=== PATIENT | male | born 1965 | race Caucasian/White ===

== ENCOUNTER → 2018-09-19 | Outpatient (CLI) | payer BC ==
--- NOTE | 2018-09-19 08:34 | MR ---
EXAMINATION TYPE: MR knee RT wo con DATE OF EXAM: 09/19/2018 COMPARISON: NONE HISTORY: R knee pain per order. Outer pain and swelling for 6 weeks per patient. TECHNIQUE: Multiplanar, multisequence images of the knee is performed without IV contrast. FINDINGS: MEDIAL MENISCUS: There is oblique signal with truncation of the posterior horn extending to superior surface with inferior extension near central body and more horizontal component extending into the an terior horn. LATERAL MENISCUS: Anterior and posterior horns are intact without tear. CRUCIATE LIGAMENTS: The anterior and posterior cruciate ligaments are intact and unremarkable. COLLATERAL LIGAMENTS: The medial collateral ligament and lateral collateral ligament complex are inta ct. Mild fluid signal surrounds the medial collateral ligament EXTENSOR MECHANISM: Visualized quadriceps and patellar tendons are intact. EFFUSION: No significant suprapatellar joint effusion. POPLITEAL CYST: No popliteal/banks cyst. TRICOMPARTMENT SPACES: Tricompartment joint spaces show mild narrowing. No significant spurring is se en. CARTILAGE: No significant chondromalacia patella. Articular cartilage is maintained. BONE MARROW SIGNAL: No focal abnormal marrow signal is appreciated. OTHER: No additional significant abnormality is appreciated. IMPRESSION: 1. Complex full-thickness tear posterior horn of medial meniscus extending into central body. 2. Mild MCL sprain injury.
== END | disposition home or self-care (01) ==
LOC: RADMRIMAIN 07:42
PROVIDERS: ATTEND Family Medicine
DX: S83.231A Complex tear of medial meniscus, current injury, right knee, initial encounter (principal); S83.411A Sprain of medial collateral ligament of right knee, initial encounter

== ENCOUNTER 2020-05-28 08:21 | Day surgery (SDC) | payer OTHER ==
[2020-05-25 13:01] VITALS: BMI 29.1
[~2020-05-28 08:21] MED LIST: LACTATED RINGERS 1,000 ML IV SCH; LIDOCAINE 1% (10MG/ML) FOR IV START INTRADERMA PRN
[2020-05-28 08:57] VITALS: TEMP 97.7
--- NOTE | 2020-05-28 09:28 | P.GSHP ---
History of Present Illness H&P Date: 05/28/20 Chief Complaint: Screening colonoscopy This a 55-year-old male today for screening colonoscopy. Patient denies any significant GI complaints. Past Medical History Past Medical History: Cancer Additional Past Medical History / Comment(s): HX SKIN CANCER ON LT NECK AREA History of Any Multi-Drug Resistant Organisms: None Reported Past Surgical History: Appendectomy, Hernia Repair, Tonsillectomy Additional Past Surgical History / Comment(s): COLONOSCOPY. SKIN CANCER REMOVED FROM LEFT NECK AREA Past Anesthesia/Blood Transfusion Reactions: No Reported Reaction Smoking Status: Former smoker - Past Family History Father Family Medical History: Cancer Medications and Allergies Home Medications Medication Instructions Recorded Confirmed Type Rosuvastatin Calcium [Crestor] 10 mg PO DAILY 05/25/20 05/28/20 History Allergies Allergy/AdvReac Type Severity Reaction Status Date / Time No Known Allergies Allergy Verified 05/25/20 12:57 Surgical - Exam Vital Signs Temp Pulse Resp BP Pulse Ox 97.7 F 71 18 163/98 95 05/28/20 08:53 05/28/20 08:53 05/28/20 08:53 05/28/20 08:53 05/28/20 08:53 - General well developed, well nourished, no distress - Eyes PERRL - ENT normal pinna - Neck no masses - Respiratory normal expansion - Cardiovascular Rhythm: regular - Abdomen Abdomen: soft, non tender Assessment and Plan Assessment: We'll perform screening colonoscopy
[2020-05-28] MEDS ORDERED: PROPOFOL 10 MG/ML 20 ML VIAL IV ONE (09:30)
[2020-05-28] MEDS ORDERED: LIDOCAINE 1% INJ 10MG/ML (20 ML MDV) ONE (09:30)
--- NOTE | 2020-05-28 09:48 | P.OP ---
Date of Procedure: 05/28/20 Preoperative Diagnosis: Screening colonoscopy Postoperative Diagnosis: Left colon polyp Procedure(s) Performed: Colonoscopy Anesthesia: MAC Surgeon: Tyson Vigil Pathology: other (leftColon polyp) Condition: stable Disposition: PACU Description of Procedure: The patient's placed on the endoscopy table in the lateral position. He received IV sedation. Digital rectal exam was performed which revealed no abnormalities. The flexible colonoscope was then placed patient anus and passed throughout the entire colon. The ileocecal valve was visualized. The cecum, ascending and transverse colon appeared normal. In the descending colon at the 60 cm brennen there was a small sessile polyp. This was removed with the forcep. Scope was then brought back into the sigmoid colon this appeared all. Scope was then brought back the rectum and this was normal. Scope was withdrawn for patient.
[2020-05-28 09:53] VITALS: RESP 16
[2020-05-28 10:02] VITALS: BP 136/80; PULSE 63
== END 2020-05-28 10:23 | disposition home or self-care (01) ==
LOC: ORWHC2ENDO 08:21
PROVIDERS: ATTEND Surgery
DX: Z12.11 Encounter for screening for malignant neoplasm of colon (principal); K63.5 Polyp of colon; E78.5 Hyperlipidemia, unspecified; Z87.891 Personal history of nicotine dependence; Z85.828 Personal history of other malignant neoplasm of skin; Z90.89 Acquired absence of other organs; Z98.890 Other specified postprocedural states; Z80.9 Family history of malignant neoplasm, unspecified
CPT/HCPCS: 88305; 45380; J2001; J2704